=== PATIENT | female | born 1960 | race Caucasian/White ===

== ENCOUNTER 2017-06-05 07:00 | Inpatient (IN) | payer OTHER ==
[~2017-06-05] VITALS: Ht 162.6 cm; Wt 73.0 kg
[2017-06-05] VITALS (7 sets, daily range): BP systolic 101–127; BP diastolic 72–86
--- NOTE | 2017-06-05 07:34 | NUR ---
PATIENT PRESENTS TO ED WITH COMPLAINS OF n/v X5 DAYS . PT STATES SHE HAS A 10/10 PAIN IN ABD . SKIN IS PINK/WARM/DRY;AAX4, LUNGS CLEAR BL; HR EVEN AND REGULAR; PT DENIES ANY FEVER, CP, SOB, OR COUGH AT THIS TIME;VSS; PATIENT POSITIONED FOR COMFORT; HOB ELEVATED; BEDRAILS UP X2; BED DOWN. ER MD MADE AWARE OF PT STATUS.
[2017-06-05] MEDS ORDERED: OMEP20TC10 PO (07:35)
[2017-06-05] MEDS ORDERED: FERR-252 PO (07:35)
[2017-06-05] MEDS ORDERED: ONDANSETRON 4 MG/2 ML VIAL IVP ONE (07:35)
[2017-06-05] MEDS ORDERED: FAMOTIDINE 20 MG/2 ML VIAL IVP ONE (07:35)
[2017-06-05] MEDS ORDERED: NACL 0.9% 1,000 ML IV ONE (07:35)
--- NOTE | 2017-06-05 07:57 | NUR ---
PT WAS TAKEN OFF THE UNIT VIA GURNEY FOR CT SCAN BY DARLIN LIANG.
--- NOTE | 2017-06-05 08:10 | NUR ---
CHEST XRAY AT BEDSIDE BY ZIA.
[2017-06-05 08:38] LABS: PLATELET COUNT (AUTO) 214 K/uL (140-450); RED CELL DISTRIBUTION WIDTH 19.3 % (11.6-13.7); WHITE BLOOD COUNT (AUTO) 9.8 K/uL (4.8-10.8)
[2017-06-05 08:41] LABS: MEAN CORPUSCULAR HEMOGLOBIN 31 pg (27-31); MEAN CORPUSCULAR HGB CONC 32 g/dL (33-37); MEAN CORPUSCULAR VOLUME 97.2 fL (80-94); RED BLOOD CELL COUNT(AUTO) 1.85 MIL/uL (4.20-5.40)
[2017-06-05 09:13] LABS: ANION GAP 15.9 (8-16); CARBON DIOXIDE 23.8 mmol/L (21-32); POTASSIUM 4.7 mmol/L (3.5-5.1); TOTAL BILIRUBIN 0.3 mg/dL (0.0-1.0)
[2017-06-05 09:25] LABS: HEMOGLOBIN 5.7 g/dL (12.0-16.0)
[2017-06-05] MEDS ORDERED: PIPERACILLIN/TAZOBACTAM 3.375 GM in DEXTROSE 5% 50 ML IV ONE (09:30)
[2017-06-05] MEDS ORDERED: VANCOMYCIN 1,000 MG in DEXTROSE 5% 250 ML IV ONE (09:30)
[2017-06-05] MEDS ORDERED: VANCOMYCIN 1,000 MG VIAL ONE (09:35)
[2017-06-05] MEDS ORDERED: PIPERACILLIN/TAZOBACTAM 3.375 GM VIAL IV ONE (09:35)
[2017-06-05] MEDS ORDERED: MORPHINE SULFATE 2 MG/ML SYR IVP PRN (10:10)
[2017-06-05] MEDS ORDERED: VANCOMYCIN PER PHARMACY MC PRN (10:10)
[2017-06-05] MEDS ORDERED: LORazepam 2 MG/ML VIAL IVP PRN (10:10)
[2017-06-05] MEDS ORDERED: ONDANSETRON 4 MG/2 ML VIAL IVP PRN (10:10)
[2017-06-05] MEDS ORDERED: PANTOPRAZOLE 40 MG INJ VIAL IVP SCH (10:30)
[2017-06-05 10:46] LABS: MAGNESIUM 1.9 mg/dL (1.8-2.4); PHOSPHORUS 2.8 mg/dL (2.5-4.9)
--- NOTE | 2017-06-05 11:00 | NUR ---
ADMITTED PT FROM ER . PT AWAKE, ALERT AND ORIENTED, JAUNDICE,BEDSIDE MONITOR SHOWS ST. ON O2 NC 2L/MIN, NO S/S OF RESPIRATORY DISTRESS NOTED. LUNG SOUND CLEAR. SKIN INTACT, IV TO RIGHT HAND # 22 RUNNING VANCOMYCIN, SITE INTACT AND PATENT. PT ABLE TO MOVE ALL HER EXTREMITIES, FAMILY AT BEDSIDE. CALL LIGHT IN REACH, WILL CONTINUE TO MONITOR.
--- NOTE | 2017-06-05 11:02 | NUR ---
STARTED THE FIRST RED BLOOD CELLS TRANSFUSION, PT VITALS CHECKED, STABLE, NO FEVER, RISKS AND BENEFITS EXPLAINED TO PT. PT VERBALIZED UNDERSTANDING AND PT SAID SHE WILL NOTIFY US IF SHE HAS ANY DISCOMFORT. PT'S FAMILY AT BEDSIDE.
--- NOTE | 2017-06-05 11:03 | NUR ---
Patient will be admitted to care of DR. STANLEY. Admited to ICU. Will go to room 1. Belongings list completed. Report to HOSSEIN ORDAZ ; PT. WAS UNABLE TO GIVE URINE AT THIS TIME.
--- NOTE | 2017-06-05 11:14 | NUR ---
RECEIVED LAB RESULT LACTIC ACID 4.3. PAGED DR. STANLEY, GOT CALL BACK. NOTIFIED LACTIC ACID RESULT SAID WILL BE IN ICU TO SEE PT. AT AFTERNOON TODAY.
[2017-06-05] MEDS: DEXT 5% / NACL 0.45% 1,000 ML IV SCH (11:15)
--- NOTE | 2017-06-05 11:50 | NUR ---
DR. GUERRERO IN TO SEE PT, PER DR. GUERRERO, INSERT NGT AND CONNECT TO HIGH INTERMITTENT SUCTION.
[2017-06-05 11:58] LABS: PROTHROMBIN TIME 13.7 secs (10.8-13.4)
--- NOTE | 2017-06-05 12:00 | NUR ---
NG TUBE TO LEFT NARES INSERTION DONE, 1600 MLS COFFEE GROUND LIQUID OUTPUT NOTED. DR. GUERRERO AWARE
--- NOTE | 2017-06-05 13:35 | NUR ---
STARTED THE SECOND BAG OF RED BLOOD CELLS TRANSFUSION.
--- NOTE | 2017-06-05 15:00 | NUR ---
IN TO SEE PT, WILL FOLLOW UP.
--- NOTE | 2017-06-05 15:30 | NUR ---
PT STATED SHE FEELS MUCH BETTER COMPARED TO THIS MORNING. NO S/S OF RESPIRATORY DISTRESS NOTED.
[2017-06-05] MEDS ORDERED: PIPERACILLIN/TAZOBACTAM 3.375 GM in DEXTROSE 5% 50 ML IV SCH (16:00)
--- NOTE | 2017-06-05 16:10 | NUR ---
STARTED THE THIRD BAG OF RED BLOOD CELLS TRANSFUSION.
--- NOTE | 2017-06-05 18:00 | NUR ---
PT RESTING COMFORTABLY IN BED. DAUGHTERS AT BEDSIDE. PT STATED SHE FEELS FINE.
[2017-06-05 18:58] LABS: LYMPHOCYTES % (MANUAL) 8 % (20-46); MONOCYTES % (MANUAL) 15 % (5-12)
--- NOTE | 2017-06-05 19:15 | NUR ---
REPORT GIVEN TO PM NURSE BY CHARGE NURSE.
--- NOTE | 2017-06-05 20:00 | NUR ---
PATIENT AAOX4, SR ON THE MONITOR, RECEIVED WITH 4TH UNIT OF PRBC TRANSFUSING, SON AT BEDSIDE AND INTERPRETING FOR THE PATIENT (SYRIAN SPEAKING ONLY). MEDIPORT ON RIGHT SUBCLAVIAN INTACT, PATIENT HAS PERIPHERAL LINE ON RIGHT HAND G#20, PATENT AND INTACT. NGT TO HIGH INTERMITTENT SUCTION, NOTED WITH COFFEE GROUND DRAINAGE, NO NAUSEA , VOMITING AND ABDOMINAL PAIN. SKIN INTACT. CALL LIGHT PLACED WITHIN REACH. Addendum: 06/05/17 at 2237 by Camryn Gandhi RN IV PERIPHERAL ON RIGHT HAND G#22 AND NOT G#20
[2017-06-05] MEDS: PIPER/TAZO 3.375GM/D5W PREMIX 50 ML IV SCH (20:31)
[2017-06-05] MEDS: VANCOMYCIN 500 MG in DEXTROSE 5% 100 ML IV SCH (22:00)
--- NOTE | 2017-06-05 22:00 | NUR ---
4TH UNIT PRBC COMPLETED AT 2119 WITH NO ADVERSE REACTIONS NOTED. DENIES PAIN. DR. GUZMÁN HERE AT THIS TIME TO SEE THE PATIENT, TO CONTINUE CURRENT ANTIBIOTICS TREATMENT.
[2017-06-06] VITALS (12 sets, daily range): BP systolic 86–117; BP diastolic 45–67
--- NOTE | 2017-06-06 00:27 | NUR ---
PATIENT SLEEPING COMFORTABLY, SR ON THE MONITOR, RESPIRATION NORMAL, IVF D5 1/2 NS AT 75 ML/HR INFUSING.
[2017-06-06] MEDS: DEXT 5% / NACL 0.45% 1,000 ML IV SCH ×2 (02:04→13:25)
--- NOTE | 2017-06-06 02:54 | NUR ---
PATIENT SLEEPING COMFORTABLY.
--- NOTE | 2017-06-06 04:17 | NUR ---
PATIENT ABLE TO TURNED AND REPOSITIONED SELF IN BED, SLEEPING COMFORTABLY.
[2017-06-06] MEDS: PIPER/TAZO 3.375GM/D5W PREMIX 50 ML IV SCH ×3 (04:24→21:24)
--- NOTE | 2017-06-06 06:19 | NUR ---
AM CARE PROVIDED, IVF D5 1/2 NS INFUSING AT 75 MLS/HR, IV SITE ON RIGHT HAND REMAINS PATENT AND INTACT, NO GASTRIC OUTPUT NOTED, NGT TO LEFT NARE CONNECTED TO INTERMITTENT SUCTION. MEDIPORT ON RIGHT SUBCLAVIAN INTACT AND PATENT. PATIENT SLEPT WELL DURING THE NIGHT, NO NAUSEA,VOMITING OR ABDOMINAL PAIN OCCURRED. CALL LIGHT WITHIN REACH.
[2017-06-06 06:43] LABS: ALBUMIN 1.8 g/dL (3.4-5.0); ANION GAP 11.4 (8-16); CARBON DIOXIDE 28.1 mmol/L (21-32); POTASSIUM 4.5 mmol/L (3.5-5.1); TOTAL BILIRUBIN 0.7 mg/dL (0.0-1.0)
[2017-06-06 07:13] LABS: HEMATOCRIT 30.9 % (36-48); HEMOGLOBIN 10.1 g/dL (12.0-16.0); MEAN CORPUSCULAR HEMOGLOBIN 29 pg (27-31); MEAN CORPUSCULAR HGB CONC 33 g/dL (33-37); MEAN CORPUSCULAR VOLUME 89.8 fL (80-94); PLATELET COUNT (AUTO) 136 K/uL (140-450); RED BLOOD CELL COUNT(AUTO) 3.44 MIL/uL (4.20-5.40); WHITE BLOOD COUNT (AUTO) 8.6 K/uL (4.8-10.8)
--- NOTE | 2017-06-06 08:00 | NUR ---
RECEIVED REPORT FROM HOSSEIN ORDAZ. PT AWAKE IN BED WITH AT BEDSIDE. PT IS A&0X4. PT IS ABLE TO MOVE ALL EXTREMITIES, RESPONDS TO ALL COMMANDS AND IS ABLE TO AMBULATE. PT HAD NG TUBE ON INTERMITTENT SUCTION WITH COFFEE GROUND COLOR FLUID REMOVED FORM STOMACH. PT DENIES ALL PAIN. PT HAS BEDSIDE COMMODE IN ROOM AND USES FOR BATHROOM NEEDS. PT HAS +2 BILATERAL PULSES ON ALL EXTREMITIES WITH SKIN WARM AND DRY TO TOUCH. PT IS AFEBRILE. LUNG SOUNDS ARE CLEAR BILATERALLY. BOWEL SOUNDS ACTIVE IN ALL 4 QUADRANTS ALTHOUGH NPO. PTS SKIN IS INTACT. PT HAS SCDS IN ROOM BUT HAS ASKED TO NOT WEAR THEM FOR A LITTLE WHILE, WILL ASK TO PUT THEM BACK ON SOON. PTS BED LEFT IN LOWEST POSITION, BED LOCK AND ALARM ON. CALL LIGHT WITHIN REACH.
--- NOTE | 2017-06-06 08:10 | NUR ---
DR. CASTILLO CAME TO SEE PATIENT. AT BEDSIDE. WILL CLOSELY MONITOR.
[2017-06-06] MEDS: PANTOPRAZOLE 40 MG INJ VIAL IVP SCH (09:43)
[2017-06-06] MEDS: VANCOMYCIN 500 MG in DEXTROSE 5% 100 ML IV SCH ×2 (10:07→22:08)
--- NOTE | 2017-06-06 11:00 | NUR ---
PT'S DAUGHTER AT BEDSIDE.
--- NOTE | 2017-06-06 11:27 | NUR ---
PT RESTING IN BED WITH AND DAUGHTER AT BEDSIDE. PT STATES NO PAIN AND SHE IS OKAY. WILL CLOSELY MONITOR.
--- NOTE | 2017-06-06 11:28 | NUR ---
FAXED INITIAL REVIEW TO [facility] [phone] PHONE KYRA [phone]
--- NOTE | 2017-06-06 12:18 | NUR ---
PATIENT HAS BEEN SCREENED AND CATEGORIZED HIGH NUTRITION RISK. PATIENT WILL BE SEEN WITHIN 1-2 DAYS OF ADMISSION. 06/05/17-06/06/[address]
--- NOTE | 2017-06-06 13:18 | NUR ---
06/06/2017 RD INITIAL ASSESSMENT COMPLETED PLEASE REFER TO NUTRITION ASSESSMENT UNDER CARE ACTIVITY FOR ESTIMATED NUTRITIONAL NEEDS. CONTINUE NPO MEDICALLY NECESSARY. WHEN MEDICALLY FEASIBLE, ADVANCE DIET TO REGULAR DIET. RD TO FOLLOW-UP IN 2-3 DAYS PATIENT IS HIGH RISK. LILLIANA HELMS, RD
--- NOTE | 2017-06-06 13:50 | NUR ---
PT RESTING IN BED. STILL NPO. PT'S SON AND DAUGHTER IN LAW AT BED SIDE. PT DENIES ALL PAIN.
--- NOTE | 2017-06-06 15:00 | NUR ---
PT SLEEPING IN BED. BED IN LOWEST POSITION. BED ALARM AND LOCK ON, CALL LIGHT IN PLACE. HOB ELEVATED. WILL CLOSELY MONITOR.
[2017-06-06 15:02] LABS: LYMPHOCYTES % (MANUAL) 12 % (20-46); MONOCYTES % (MANUAL) 14 % (5-12)
--- NOTE | 2017-06-06 15:45 | NUR ---
CAME TO SEE PATIENT, AT BEDSIDE WITH SON. SON REQUESTED MEDICAL RECORDS AND ADMITTING CAME TO SPEAK WITH PATIENT'S FAMILY. SON WAS WORRIED ABOUT LANGUAGE BARRIER, EDUCATED ON TRANSLATION SYSTEM AND ENSURING THAT PT ALWAYS FELT COMFORTABLE WITH SECURITY INCIDENT RESPONSE ENGINEER.
--- NOTE | 2017-06-06 17:29 | NUR ---
PT IS WATCHING TV IN BED. DENIES ALL PAIN. WILL CLOSELY MONITOR.
--- NOTE | 2017-06-06 19:17 | NUR ---
GAVE BEDSIDE REPORT TO NIGHT RN, JOSE MIGUEL, FOR CONTINUATION OF CARE.
--- NOTE | 2017-06-06 19:30 | NUR ---
RECEIVED BEDSIDE REPORT FROM MORNING NURSE. PT IS AWAKE AND AAO X4, VERBALLY RESPONSIVE, ABLE TO MAKE NEEDS KNOWN. NGT IN PLACE WITH CLAMPED AND CLEAR SECRETION NOTED. BILATERAL LUNG SOUND CLEAR. ACTIVE BOWEL SOUND FROM ALL 4 QUADS. MEDIPORT TO RIGHT SUBCLAVIAN, ASYMPTOMATIC, INTACT AND PATENT. SKIN INTACT. NO ACUTE DISTRESS NOTED. DENIES ANY PAIN OR DISCOMFORT. BED IN LOW POSITION. CALL LIGHT WITHIN THE REACH. WILL CONTINUE TO MONITOR.
--- NOTE | 2017-06-06 20:40 | NUR ---
TRIED TO INSERT PERIPHERAL IV LINE X3, UNABLE TO INSERT AT THIS TIME. NOTIFIED TO AND DR. STANLEY STATED OK TO USE MEDIPORT TO RIGHT SUBCLAVIAN.
--- NOTE | 2017-06-06 21:20 | NUR ---
ADMINISTERED SCHEDULED ABX ORDERED, TOLERATED WELL. NO ACUTE DISTRESS NOTED. FAMILY MEMBERS AT BEDSIDE. SR ON THE MONITOR. DENIES PAIN. WILL CONTINUE TO MONITOR.
--- NOTE | 2017-06-06 22:10 | NUR ---
ADMINISTERED SCHEDULED ABX ORDERED, TOLERATED WELL. NO ACUTE DISTRESS NOTED. SR ON THE MONITOR. WILL CONTINUE TO MONITOR.
--- NOTE | 2017-06-06 22:50 | NUR ---
AT HERE TO SEE THE PT. WILL FOLLOW THE ORDERS.
[2017-06-07] VITALS: BP 85/50
--- NOTE | 2017-06-07 | NUR ---
PT IS IN ASLEEP AT THIS TIME, AROUSABLE TO VOICE. SR ON THE MONITOR. NO ACUTE DISTRESS NOTED.
[2017-06-07 02:00] VITALS: BP 111/73
--- NOTE | 2017-06-07 02:00 | NUR ---
PT IS IN ASLEEP, AROUSABLE TO VOICE. NO ACUTE DISTRESS NOTED. SR ON THE MONITOR. DENIES ANY PAIN OR DISCOMFORT.WILL CONTINUE TO MONITOR.
[2017-06-07] MEDS: DEXT 5% / NACL 0.45% 1,000 ML IV SCH ×2 (02:24→15:37)
--- NOTE | 2017-06-07 03:40 | NUR ---
PT IS IN ASLEEP, AROUSABLE TO VOICE. NO ACUTE DISTRESS NOTED. PT USED BEDSIDE COMMODE WITH ASSISTANCE FOR URINATION. SR ON THE MONITOR. WILL CONTINUE TO MONITOR.
[2017-06-07] MEDS: PIPER/TAZO 3.375GM/D5W PREMIX 50 ML IV SCH ×3 (05:10→20:59)
--- NOTE | 2017-06-07 05:30 | NUR ---
PT IS IN ASLEEP, AROUSABLE TO VOICE. NO ACUTE DISTRESS NOTED. SR ON THE MONITOR. VSS. WILL CONTINUE TO MONITOR.
[2017-06-07 07:04] LABS: HEMATOCRIT 31.1 % (36-48); MEAN CORPUSCULAR HEMOGLOBIN 29 pg (27-31); MEAN CORPUSCULAR HGB CONC 32 g/dL (33-37); MEAN CORPUSCULAR VOLUME 89.8 fL (80-94); PLATELET COUNT (AUTO) 128 K/uL (140-450); RED BLOOD CELL COUNT(AUTO) 3.47 MIL/uL (4.20-5.40); RED CELL DISTRIBUTION WIDTH 17.8 % (11.6-13.7); WHITE BLOOD COUNT (AUTO) 5.4 K/uL (4.8-10.8)
--- NOTE | 2017-06-07 07:20 | NUR ---
PT TRANSFERRED TO TELE ROOM 111B FROM ICU, BEDSIDE REPORT GIVEN TO DARIA OWUSU DURING TRANSFER. NO ACUTE DISTRESS NOTED.
--- NOTE | 2017-06-07 07:21 | NUR ---
RECEIVED BEDSIDE REPORT FROM ICU NURSE AT BEDSIDE FOR CONTINUITY OF CARE. PT IS AWAKE AND AAO X4, VERBALLY RESPONSIVE, DIVEHI SPEAKING. ABLE TO MAKE NEEDS KNOWN. NGT IN PLACE WITH CLAMPED AND CLEAR SECRETION NOTED. BILATERAL LUNG SOUND CLEAR. ACTIVE BOWEL SOUND FROM ALL 4 QUADRANTS. MEDIPORT TO RIGHT SUBCLAVIAN, ASYMPTOMATIC, INTACT AND PATENT. SKIN INTACT. NO ACUTE DISTRESS NOTED. PATIENT DENIES PAIN. NO SIGNS OF DISCOMFORT NOTED. SAFETY PRECAUTION IN PLACE, BED IN LOW POSITION. CALL LIGHT WITHIN THE REACH. WILL CONTINUE TO MONITOR PATIENT.
[2017-06-07 07:27] LABS: ALBUMIN 1.8 g/dL (3.4-5.0); ANION GAP 10.1 (8-16); CARBON DIOXIDE 27.5 mmol/L (21-32); CREATININE 0.9 mg/dL (0.6-1.3); POTASSIUM 3.6 mmol/L (3.5-5.1); TOTAL BILIRUBIN 0.6 mg/dL (0.0-1.0)
[2017-06-07 07:49] LABS: EOSINOPHILS % (MANUAL) 3 % (0-4); LYMPHOCYTES % (MANUAL) 12 % (20-46); MONOCYTES % (MANUAL) 18 % (5-12)
[2017-06-07 08:00] VITALS: BP 95/64
[2017-06-07] MEDS: PANTOPRAZOLE 40 MG INJ VIAL IVP SCH (09:46)
--- NOTE | 2017-06-07 09:46 | NUR ---
ORDERED MEDICATION GIVEN. PATIENT TOLERATING IT WELL. PATIENT DENIES PAIN. TOLERATING CLEAR LIQUID DIET WELL. ORDER FOR CT BIOPSY/ASPIRATION. CONSENT OBTAINED. PATIENT SHOWS NO SIGNS OF DISTRESS. SAFETY PRECAUTION IN PLACE, CALL LIGHT WITHIN REACH. WILL CONTINUE TO MONITOR PATIENT.
--- NOTE | 2017-06-07 10:15 | NUR ---
FOLLOW UP WITH CT BIOPSY/ASPIRATION PROCEDURE. SPOKE TO ZIA FROM RADIOLOGY. SHE SAID RADIOLOGY WILL NEED TO SPEAK TO DR. CASTILLO TO CLARIFY WHAT THE CT BIOPSY IS FOR.
[2017-06-07] MEDS: VANCOMYCIN 500 MG in DEXTROSE 5% 100 ML IV SCH ×2 (10:19→22:20)
--- NOTE | 2017-06-07 10:19 | NUR ---
ORDERED MEDICATIONS GIVEN. PATIENT TOLERATING IT WELL. PATIENT DENIES PAIN. NO SIGNS OF DISTRESS. SAFETY PRECAUTION IN PLACE, CALL LIGHT WITHIN REACH. WILL CONTINUE TO MONITOR PATIENT.
--- NOTE | 2017-06-07 11:37 | NUR ---
RADIOLOGIST SPOKE TO DR. CASTILLO. NEW ORDER OF ABDOMINAL US IN. WILL FOLLOW UP WITH RADIOLOGY. PATIENT AND FAMILY MEMBERS INFORMED. PATIENT RESTING IN BED, PATIENT DENIES PAIN. NO SIGNS OF DISTRESS. SAFETY PRECAUTION IN PLACE, CALL LIGHT WITHIN REACH. WILL CONTINUE TO MONITOR PATIENT.
[2017-06-07 12:00] VITALS: BP 104/77
--- NOTE | 2017-06-07 12:30 | NUR ---
ORDERED MEDICATIONS GIVEN. PATIENT TOLERATING IT WELL. PATIENT DENIES PAIN. NO SIGNS OF DISTRESS. SAFETY PRECAUTION IN PLACE, CALL LIGHT WITHIN REACH. WILL CONTINUE TO MONITOR PATIENT. WAITING FOR ABDOMINAL US ORDERED BY DR. CASTILLO. CALLED RADIOLOGY, SPOKE TO ZIA. SHE SAID SHE WILL FOLLOW UP AND RETURN MY CALL. AWAITING HER CALL BACK.
--- NOTE | 2017-06-07 13:31 | NUR ---
SPECIAL OFFICER IN TO DO ABDOMINAL LIMITED US OF RIGHT UPPER QUADRANT. RIKA AND A FRIEND IS BY BEDSIDE. PATIENT TOLERATING IT WELL. WILL FOLLOW UP WITH RESULTS.
[2017-06-07 16:00] VITALS: BP 110/79
--- NOTE | 2017-06-07 16:15 | NUR ---
CALLED RADIOLOGY TO FOLLOW UP WITH RESULTS OF ABDOMINAL US AND TO SEE IF CT BIOPSY WILL BE DONE TODAY. SPOKE TO MARY. HE SPOKE TO RADIOLOGIST. PATIENT CURRENTLY IN STABLE CONDITION. SO CT BIOPSY WILL BE DONE TOMORROW 06/08. DR. GUERRERO IN TO SEE THE PATIENT. AT BEDSIDE. NG TUBE REMOVED, PATIENT DRINKING FLUIDS AND TOLERATING THEM WELL. NO NAUSEA OR VOMITING. VS WNL. PATIENT DENIES PAIN. NO SIGNS OF DISTRESS. SAFETY PRECAUTION IN PLACE, CALL LIGHT WITHIN REACH. WILL CONTINUE TO MONITOR PATIENT.
--- NOTE | 2017-06-07 18:16 | NUR ---
PATIENT SITTING BY SIDE OF BED EATING DINNER. AND DAUGHTER AT BEDSIDE. NO SIGNS OF DISTRESS NOTED. PATIENT DENIES PAIN. SAFETY PRECAUTION IN PLACE, BED ON LOWEST SETTING, CALL LIGHT WITHIN REACH. WILL CONTINUE TO MONITOR PATIENT.
--- NOTE | 2017-06-07 19:23 | NUR ---
PATIENT REPORT GIVEN TO ADVANCED MANAGER NURSE AT BEDSIDE FOR CONTINUITY OF CARE. PATIENT IN STABLE CONDITION.
--- NOTE | 2017-06-07 19:23 | NUR ---
RECEIVED PATIENT IN BED ACCOMPANIED BY . BED IN LOW POSITION. CALL LIGHTS WITHIN REACH. NO S/ S OF ACUTE DISTRESS AT THIS TIME.
[2017-06-07 20:00] VITALS: BP 116/74
--- NOTE | 2017-06-07 21:30 | NUR ---
SEEN PATIENT LYING BED IN COMFORTABLE POSITION. BED IN LOW POSITION. CALL LIGHTS WITHIN REACH. NO S/S OF ACUTE DISTRESS AT THIS TIME. WILL CONTINUE TO MONITOR.
[2017-06-08] VITALS (10 sets, daily range): BP systolic 95–141; BP diastolic 57–85
--- NOTE | 2017-06-08 01:05 | NUR ---
SEEN PATIENT ASLEEP BUT EASILY AROUSABLE. BED IN LOW POSITION. CALL LIGHT WITHIN REACH. WILL CONTINUE TO MONITOR.
--- NOTE | 2017-06-08 03:00 | NUR ---
SEEN PATIENT ASLEEP IN BED. CALL LIGHTS WITHIN REACH. BED IN LOW POSITION.. WILL CONTINUE TO MONITOR.
[2017-06-08] MEDS: PIPER/TAZO 3.375GM/D5W PREMIX 50 ML IV SCH ×3 (04:34→20:47)
[2017-06-08] MEDS: DEXT 5% / NACL 0.45% 1,000 ML IV SCH ×2 (04:46→16:33)
--- NOTE | 2017-06-08 06:02 | NUR ---
SEEN PATIENT SITTING AWAKE IN BED. BED IN LOW POSITION. CALL LIGHT WITHIN REACH. WILL CONTINUE TO MONITOR.
--- NOTE | 2017-06-08 07:06 | NUR ---
PATIENT REPORT GIVEN TO AM SHIFT NURSE AT BEDSIDE FOR CONTINUITY OF CARE. PATIENT IN STABLE CONDITION.
--- NOTE | 2017-06-08 07:07 | NUR ---
RECEIVED REPORT FROM LAYBOY OPERATOR NURSE AT BEDSIDE FOR CONTINUITY OF CARE. PT IS ASLEEP BUT AROUSABLE, AAO X4, AT BEDSIDE. VERBALLY RESPONSIVE, CROATIAN SPEAKING. ABLE TO MAKE NEEDS KNOWN. MEDIPORT TO RIGHT SUBCLAVIAN, ASYMPTOMATIC, INTACT AND PATENT, INFUSING IVF. SKIN INTACT. NO ACUTE DISTRESS NOTED. PATIENT DENIES PAIN. NO SIGNS OF DISCOMFORT NOTED. SAFETY PRECAUTION IN PLACE, BED IN LOW POSITION. CALL LIGHT WITHIN THE REACH. WILL CONTINUE TO MONITOR PATIENT.
--- NOTE | 2017-06-08 07:30 | NUR ---
CALLED RADIOLOGY TO INQUIRE ABOUT CT BIOPSY AND IF IT WILL BE DONE TODAY. SPOKE TO FERNANDO. WILL AWAIT HER CALL BACK.
[2017-06-08 07:44] LABS: HEMATOCRIT 29.6 % (36-48); HEMOGLOBIN 9.6 g/dL (12.0-16.0); MEAN CORPUSCULAR HEMOGLOBIN 30 pg (27-31); MEAN CORPUSCULAR HGB CONC 33 g/dL (33-37); PLATELET COUNT (AUTO) 142 K/uL (140-450); RED BLOOD CELL COUNT(AUTO) 3.26 MIL/uL (4.20-5.40); RED CELL DISTRIBUTION WIDTH 18.1 % (11.6-13.7)
--- NOTE | 2017-06-08 07:45 | NUR ---
FERNANDO CALLED BACK. SHE SAID THAT RADIOLOGIST WAS PAGED, HE HAS NOT CALLED BACK. SHE WILL UPDATE ME WHEN HE DOES.
--- NOTE | 2017-06-08 08:31 | NUR ---
DR. CASTILLO IN TO SEE THE PATIENT. WILL AWAIT NEW ORDERS.
--- NOTE | 2017-06-08 09:00 | NUR ---
PATIENT RESTING IN BED, AT BEDSIDE. PATIENT AMBULATED TO RESTROOM ON STEADY GAIT WITH 'S STANDBY ASSIST. PATIENT HAD BOWEL MOVEMENT, BLACK, FORMED, TARRY STOOL. STOOL SAMPLE TAKEN AND SENT TO LAB. PATIENT DENIES PAIN. NO SIGNS OF DISTRESS NOTED. SAFETY PRECAUTION IN PLACE, BED IN LOWEST POSITION, CALL LIGHT WITH IN REACH. WILL CONTINUE TO MONITOR PATIENT.
--- NOTE | 2017-06-08 09:17 | NUR ---
06/08/17 RD FOLLOW UP COMPLETED PLEASE REFER TO NUTRITION PROGRESS NOTE UNDER CARE ACTIVITY FOR ESTIMATED NUTRITION NEEDS. RD RECOMMENDATIONS: 1.CONTINUE ON CLEAR LIQUID DIET TOLERATED. 2.CONSIDER ADVANCING DIET TO FULL LIQUID AND THEN TO REGULAR TOLERATED. 3.RD TO FOLLOW-UP IN 3-5 DAYS PATIENT IS MODERATE RISK. FLAKITO RAMOS, , RDN
[2017-06-08 09:19] LABS: EOSINOPHILS % (MANUAL) 2 % (0-4); LYMPHOCYTES % (MANUAL) 18 % (20-46); MONOCYTES % (MANUAL) 19 % (5-12); POTASSIUM 3.6 mmol/L (3.5-5.1)
[2017-06-08 09:20] LABS: ANION GAP 10.3 (8-16); CARBON DIOXIDE 27.3 mmol/L (21-32); CREATININE 0.9 mg/dL (0.6-1.3); TOTAL BILIRUBIN 0.6 mg/dL (0.0-1.0)
[2017-06-08 09:21] LABS: ALBUMIN 1.8 g/dL (3.4-5.0)
[2017-06-08] MEDS: PANTOPRAZOLE 40 MG INJ VIAL IVP SCH (09:26)
--- NOTE | 2017-06-08 09:26 | NUR ---
ORDERED MEDICATION GIVEN. PATIENT TOLERATED IT WELL. PATIENT NOW RESTING IN BED, NO SIGNS OF DISTRESS NOTED. SAFETY PRECAUTION IN PLACE, BED ALARM ON, BED IN LOWEST POSITION, CALL LIGHT WITH IN REACH. WILL CONTINUE TO MONITOR PATIENT.
[2017-06-08] MEDS: VANCOMYCIN 500 MG in DEXTROSE 5% 100 ML IV SCH (09:56)
--- NOTE | 2017-06-08 10:10 | NUR ---
CONSENT FOR EGD SIGNED. INFORMATION ABOUT PROCEDURE GIVEN TO PATIENT AND HER IN [place] FOR CLARIFICATION. THEY VERBALIZED UNDERSTANDING. VANCO TROUGH DONE ON 06/05/2017. NO NEW TROUGH TODAY. VANCOMYCIN GIVEN PER PHARMACIST, NANCY'S, AGREEMENT AND KNOWLEDGE. PATIENT CURRENTLY SITTING BY SIDE OF BED, NO SIGNS OF DISTRESS OR SOB NOTED. PATIENT DENIES PAIN. SAFETY PRECAUTION IN PLACE, CALL LIGHT WITHIN REACH. WILL CONTINUE TO MONITOR PATIENT.
[2017-06-08] MEDS: MIDAZOLAM 2 MG/2 ML VIAL ONE ×2 (10:44→11:24)
[2017-06-08] MEDS: fentaNYL 0.05 MG/ML VIAL ONE ×2 (10:44→11:24)
--- NOTE | 2017-06-08 10:55 | NUR ---
PATIENT TAKEN TO EGD PROCEDURE BY 2 OR NURSES. PATIENT IN STABLE CONDITION.
[2017-06-08] MEDS ORDERED: MIDAZOLAM 2 MG/2 ML VIAL IV ONE (11:30)
[2017-06-08] MEDS ORDERED: fentaNYL 0.05 MG/ML VIAL IVP ONE (11:40)
--- NOTE | 2017-06-08 11:50 | NUR ---
PATIENT BROUGHT BACK TO FLOOR VIA BED, BY 2 RNS. VITAL SIGNS STABLE, AND FRIEND AT BEDSIDE. SAFETY PRECAUTION IN PLACE, CALL LIGHT WITHIN REACH. WILL CONTINUE TO MONITOR PATIENT.
--- NOTE | 2017-06-08 12:24 | NUR ---
CONTRERAS FROM RADIOLOGY CALLED BACK. INFORMED RN THAT RADIOLOGIST ALREADY SPOKE TO DR. GUZMÁN. WILL CONTINUE PATIENT ON ANTIBIOTICS. NO CT BIOPSY AT THE MOMENT. INFORMED DR. CASTILLO, NEW ORDERS IN FOR REGULAR DIET FOR DINNER. PATIENT INFORMED. FAMILY AT BEDSIDE. PATIENT RESTING IN BED, VITAL SIGNS WNL. NO SIGNS OF DISTRESS NOTED. SAFETY PRECAUTION IN PLACE, BED IN LOWEST POSITION, CALL LIGHT WITHIN REACH. WILL CONTINUE TO MONITOR.
[2017-06-08] MEDS: SUCRALFATE 1 GM TAB PO SCH ×3 (12:52→20:47)
--- NOTE | 2017-06-08 16:32 | NUR ---
ORDERED MEDICATIONS GIVEN. PATIENT TOLERATED IT WELL. PATIENT NOW RESTING IN BED, NO SIGNS OF DISTRESS NOTED, PATIENT DENIES PAIN, AT BEDSIDE. SAFETY PRECAUTION IN PLACE, CALL LIGHT WITHIN REACH, WILL CONTINUE TO MONITOR PATIENT.
--- NOTE | 2017-06-08 17:45 | NUR ---
TUNA SANDWICH CALLED FOR PATIENT. SHE DOES NOT EAT TURKEY, CHICKEN, OR ONIONS. DIETARY NOW AWARE. PATIENT RESTING IN BED, NO SIGNS OF DISTRESS NOTED, PATIENT DENIES PAIN, AT BEDSIDE. SAFETY PRECAUTION IN PLACE, CALL LIGHT WITHIN REACH, WILL CONTINUE TO MONITOR PATIENT.
--- NOTE | 2017-06-08 19:14 | NUR ---
REPORT GIVEN TO SCHOOL SPEECH LANGUAGE PATHOLOGIST NURSE AT BEDSIDE FOR CONTINUITY OF CARE. PATIENT IN STABLE CONDITION.
--- NOTE | 2017-06-08 19:20 | NUR ---
RECEIVED PATIENT LYING IN BED ACCOMPANIED BY . BED IN LOW POSITION. CALL LIGHTS WITHIN REACH. WILL CONTINUE TO MONITOR.
[2017-06-08] MEDS: PANTOPRAZOLE 40 MG TABEC PO SCH (20:47)
--- NOTE | 2017-06-08 21:10 | NUR ---
SEEN PATIENT ASLEEP IN BED EASILY AROUSABLE, BED IN LOW POSITION, CALL LIGHTS WITHIN REACH. WILL CONTINUE TO MONITOR.
[2017-06-09] VITALS: BP 99/65
--- NOTE | 2017-06-09 01:39 | NUR ---
SEEN PATIENT ASLEEP IN BED. CALL LIGHT WITHIN REACH. BED IN LOW POSITION.
[2017-06-09 04:00] VITALS: BP 103/63
[2017-06-09] MEDS: PIPER/TAZO 3.375GM/D5W PREMIX 50 ML IV SCH ×3 (04:21→20:13)
[2017-06-09] MEDS: DEXT 5% / NACL 0.45% 1,000 ML IV SCH ×2 (05:28→08:32)
--- NOTE | 2017-06-09 05:46 | NUR ---
SEN PATIENT ASLEEP IN BED. BED IN LOW POSITION. CALL LIGHTS WITHIN REACH. WILL CONTINUE TO MONITOR.
[2017-06-09 07:02] LABS: HEMATOCRIT 31.7 % (36-48); MEAN CORPUSCULAR HEMOGLOBIN 29 pg (27-31); MEAN CORPUSCULAR HGB CONC 32 g/dL (33-37); MEAN CORPUSCULAR VOLUME 90.8 fL (80-94); PLATELET COUNT (AUTO) 159 K/uL (140-450); RED BLOOD CELL COUNT(AUTO) 3.49 MIL/uL (4.20-5.40); RED CELL DISTRIBUTION WIDTH 17.5 % (11.6-13.7); WHITE BLOOD COUNT (AUTO) 4.1 K/uL (4.8-10.8)
--- NOTE | 2017-06-09 07:02 | NUR ---
PATIENT QUIETLY RESTING. EASILY AWAKENS WHEN SPOKEN TO. BREATH SOUNDS CLEAR. HEART RATE 72. O2 SAT 97% ON ROOM AIR. NO RESPIRATORY DISTRESS AT THIS TIME. WILL CONTINUE TO MONITOR.
--- NOTE | 2017-06-09 07:10 | NUR ---
REPORT GIVEN TO AM SHIFT NURSE AT BEDSIDE FOR CONTINUITY OF CARE. PATIENT IN STABLE CONDITION.
--- NOTE | 2017-06-09 07:11 | NUR ---
RECEIVED REPORT FROM NIGHT RN AT PT BEDSIDE. PATIENT IS ALERT AND ORIENTED. FOLLOWS COMMANDS. RT. SUBCLAVIAN MEDIPORT, PATENT AND INTACT. DENIES PAIN. NO S/S OF RESPIRATORY DISTRESS NOTED ON ROOM AIR. CALL LIGHT WITHIN REACH. BED IN LOWEST POSITION. NO S/S OF ACUTE DISTRESS NOTED.
[2017-06-09 07:47] LABS: ALBUMIN 1.9 g/dL (3.4-5.0); ANION GAP 11.1 (8-16); CARBON DIOXIDE 27.6 mmol/L (21-32); POTASSIUM 3.7 mmol/L (3.5-5.1); TOTAL BILIRUBIN 0.5 mg/dL (0.0-1.0)
[2017-06-09 08:00] VITALS: BP 107/76
[2017-06-09] MEDS: PANTOPRAZOLE 40 MG TABEC PO SCH ×2 (08:31→20:12)
[2017-06-09] MEDS: SUCRALFATE 1 GM TAB PO SCH ×4 (08:31→20:12)
[2017-06-09 11:21] LABS: LYMPHOCYTES % (MANUAL) 7 % (20-46)
[2017-06-09 11:22] LABS: EOSINOPHILS % (MANUAL) 6 % (0-4); MONOCYTES % (MANUAL) 24 % (5-12)
[2017-06-09 12:00] VITALS: BP 132/88
--- NOTE | 2017-06-09 12:00 | NUR ---
PT SITTING UP AT BEDSIDE. AT BEDSIDE. MADE AWARE OF CURRENT PLAN OF CARE. NO S/S OF ACUTE DISTRESS NOTED. DENIES DISCOMFORT.
--- NOTE | 2017-06-09 14:02 | NUR ---
PATIENT SEEN BY DR. GUERRERO AT BEDSIDE. NO S/S OF ACUTE DISTRESS NOTED.
--- NOTE | 2017-06-09 15:36 | NUR ---
LATE ENTRY. RECEIVED ORDER WRITTEN ON 06/[address] STANLEY ABOUT TRANSFER TO [facility] FOR PLACEMENT OF DRAINAGE TUBE. I CALLED DR. STANLEY THIS AM AND ASKED HIM SINCE THIS WAS WRITTEN ON FRIDAY, DID HE CONTACT [facility] OR DOES HE STILL WANT TO SEND PATIENT. HE SAID THIS WOULD BE DR. CASTILLO'S CALL. I CALLED THE FLOOR AND ASKED WHEN DR. CASTILLO COMES IN TO CALL ME. I INFORMED SAMMY CATALANMATERIAL SCHEDULER NURSE. DR. CASTILLO HAS NOT COME IN, SO I ASKED SAMMY CATALANMATERIAL SCHEDULER NURSE TO GET IN TOUCH WITH DR. CASTILLO..
[2017-06-09 16:00] VITALS: BP 119/76
--- NOTE | 2017-06-09 16:25 | NUR ---
FAXED CONCURRENT REVIEW TO [facility] [phone] PHONE JUANITO [phone]
--- NOTE | 2017-06-09 18:00 | NUR ---
DR. CASTILLO SPOKE WITH PATIENT AND AT BEDSIDE REGARDING PLAN OF CARE. PATIENT AND FAMILY VERBALIZED UNDERSTANDING. ALL QUESTIONS AND CONCERNS MET WITH MD. NO S/S OF ACUTE DISTRESS NOTED.
--- NOTE | 2017-06-09 19:31 | NUR ---
SBAR REPORT GIVEN TO NIGHT RN AT PT BEDSIDE. NO S/S OF ACUTE DISTRESS NOTED.
--- NOTE | 2017-06-09 19:40 | NUR ---
RECEIVED REPORT FROM DAY SHIFT RN, PATIENT RESTING IN BED, NO S/S OF DISTRESS NOTED, RESPIRATION EVEN AND UNLABORED, ON ROOM AIR. AT THE BEDSIDE. RT SUBCLAVIAN MEDIPORT PATENT AND INTACT, INFUSING D5 1/2NS AT 75ML/HR. PLAN OF CARE DISCUSSED, PATIENT VERBALIZED UNDERSTANDING, CALL LIGHT WITHIN REACH, SAFETY MEASURE ENSURED, WILL CONTINUE TO MONITOR.
[2017-06-09 20:00] VITALS: BP 134/90
--- NOTE | 2017-06-09 20:15 | NUR ---
DUE MEDICATION GIVEN, PATIENT TOLERATED WELL. NO S/S OF DISTRESS NOTED, RESPIRATION EVEN AND UNLABORED, CALL LIGHT WITHIN REACH, SAFETY MEASURE ENSURED, WILL CONTINUE TO MONITOR.
--- NOTE | 2017-06-09 22:40 | NUR ---
PATIENT IS SLEEPING, RESPIRATION EVEN AND UNLABORED, ON ROOM AIR. NO S/S OF DISTRESS NOTED, CALL LIGHT WITHIN REACH ,SAFETY MEASURE ENSURED, WILL CONTINUE TO MONITOR.
[2017-06-10] VITALS: BP 119/74
--- NOTE | 2017-06-10 00:19 | NUR ---
VITAL SIGNS STABLE, NO S/S OF DISTRESS NOTED, RESPIRATION EVEN AND UNLABORED, CALL LIGHT WITHIN REACH, SAFETY MEASURE ENSURED, WILL CONTINUE TO MONITOR.
--- NOTE | 2017-06-10 02:49 | NUR ---
PATIENT IS SLEEPING, RESPIRATION EVEN AND UNLABORED, ON ROOM AIR. NO S/S OF DISTRESS NOTED, CALL LIGHT WITHIN REACH ,SAFETY MEASURE ENSURED, WILL CONTINUE TO MONITOR.
[2017-06-10 04:00] VITALS: BP 114/75
[2017-06-10] MEDS: PIPER/TAZO 3.375GM/D5W PREMIX 50 ML IV SCH ×2 (04:06→20:03)
--- NOTE | 2017-06-10 04:09 | NUR ---
DUE MEDICATION GIVEN, PATIENT TOLERATED WELL, NO S/S OF DISTRESS NOTED, RESPIRATION EVEN AND UNLABORED, WILL CONTINUE TO MONITOR.
--- NOTE | 2017-06-10 04:49 | NUR ---
PATIENT IS SLEEPING, RESPIRATION EVEN AND UNLABORED, ON ROOM AIR. NO S/S OF DISTRESS NOTED, CALL LIGHT WITHIN REACH ,SAFETY MEASURE ENSURED, WILL CONTINUE TO MONITOR.
--- NOTE | 2017-06-10 06:48 | NUR ---
NO CHANGE IN CONDITION, PATIENT IS SLEEPING, RESPIRATION EVEN AND UNLABORED, CALL LIGHT WITHIN REACH, SAFETY MEASURE ENSURED, WILL CONTINUE TO MONITOR.
--- NOTE | 2017-06-10 07:10 | NUR ---
RECEIVED REPORT AT BEDSIDE. PATIENT RESTING IN BED, NO S/S OF DISTRESS NOTED, RESPIRATION EVEN AND UNLABORED, ON ROOM AIR. RT SUBCLAVIAN MEDIPORT PATENT AND INTACT, INFUSING D5 1/2NS AT 75ML/HR. PLAN OF CARE DISCUSSED, PATIENT VERBALIZED UNDERSTANDING, CALL LIGHT WITHIN REACH, SAFETY MEASURE ENSURED, WILL CONTINUE TO MONITOR.
--- NOTE | 2017-06-10 07:27 | NUR ---
ENDORSED PLAN OF CARE TO DAY SHIFT RN, PATIENT RESTING IN BED, IN STABLE CONDITION, NO S/S OF DISTRESS NOTED.
[2017-06-10 08:00] VITALS: BP 121/73
[2017-06-10 08:21] LABS: EOSINOPHILS # (AUTO) 0.1 K/uL (0-0.4); HEMATOCRIT 30.4 % (36-48); HEMOGLOBIN 9.9 g/dL (12.0-16.0); LYMPHOCYTES # (AUTO) 0.7 K/uL (2.5-16.5); MEAN CORPUSCULAR HEMOGLOBIN 30 pg (27-31); MEAN CORPUSCULAR HGB CONC 33 g/dL (33-37); MEAN CORPUSCULAR VOLUME 91.2 fL (80-94); MONOCYTES # (AUTO) 0.9 K/uL (0.8-1.0); NEUTROPHILS # (AUTO) 2.4 K/uL (1.8-7.7); PLATELET COUNT (AUTO) 151 K/uL (140-450); RED BLOOD CELL COUNT(AUTO) 3.33 MIL/uL (4.20-5.40); RED CELL DISTRIBUTION WIDTH 17.7 % (11.6-13.7); WHITE BLOOD COUNT (AUTO) 4.1 K/uL (4.8-10.8)
[2017-06-10 08:31] LABS: BASOPHILS % (AUTO) 0.2 % (0.0-2.0); EOSINOPHILS % (AUTO) 2.8 % (0.0-4.0); LYMPHOCYTES % (AUTO) 17.4 % (20.5-51.1); MONOCYTES % (AUTO) 22.6 % (1.7-9.3)
[2017-06-10] MEDS: SUCRALFATE 1 GM TAB PO SCH ×4 (09:07→20:02)
[2017-06-10] MEDS: PANTOPRAZOLE 40 MG TABEC PO SCH ×2 (09:07→20:03)
[2017-06-10] MEDS: DEXT 5% / NACL 0.45% 1,000 ML IV SCH ×2 (10:06→23:15)
[2017-06-10 12:00] VITALS: BP 132/82
--- NOTE | 2017-06-10 13:05 | NUR ---
FAXED CONCURRENT REVIEW TO [facility] [phone] PHONE [place] [phone]
--- NOTE | 2017-06-10 13:12 | NUR ---
LATE ENTRY. SPOKE WITH DR. CASTILLO ON 06/09/17 ABOUT WHETHER HE STILL WANTED THE PATIENT TRANSFERED TO [facility]. HE SAID THAT HE WOULD CANCEL THE ORDER.
[2017-06-10] MEDS ORDERED: PIPER/TAZO 3.375GM/D5W PREMIX 50 ML IV SCH (13:23)
--- NOTE | 2017-06-10 14:00 | NUR ---
PATIENT RESTING IN BED. NO S/S OF DISTRESS. FAMILY MEMBER PRESENT AT BEDSIDE
[2017-06-10 16:00] VITALS: BP 125/75
--- NOTE | 2017-06-10 18:00 | NUR ---
PATIENT AMBULATING AROUND THE UNIT. NO S/S OF DISTRESS NOTED
--- NOTE | 2017-06-10 19:06 | NUR ---
RECEIVED REPORT FROM DAY SHIFT RN, PATIENT IS SITTING IN THE BED, AWAKE ALERT ORIENTED X4, AT BEDSIDE. NO S/S OF DISTRESS NOTED, RESPIRATION EVEN AND UNLABORED, ON ROOM AIR. MEDIPORT PATENT AND INTACT, INFUSING D51/2NS AT 75ML/HR. PLAN OF CARE DISCUSSED, PATIENT VERBALIZED UNDERSTANDING. CALL LIGHT WITHIN REACH, SAFETY MEASURE ENSURED, WILL CONTINUE TO MONITOR.
--- NOTE | 2017-06-10 19:16 | NUR ---
PATIENT REPORT GIVEN AT BEDSIDE. PATIENT ENDORSED IN STABLE CONDITION
[2017-06-10 20:00] VITALS: BP 142/87
--- NOTE | 2017-06-10 20:06 | NUR ---
DUE MEDICATION GIVEN, PATIENT TOLERATED WELL. NO S/S OF DISTRESS NOTED, RESPIRATION EVEN AND UNLABORED, SAFETY MEASURE ENSURED, WILL CONTINUE TO MONITOR.
--- NOTE | 2017-06-10 22:16 | NUR ---
PATIENT IS SLEEPING, NO S/S OF DISTRESS NOTED, RESPIRATION EVEN AND UNLABORED, CALL LIGHT WITHIN REACH, SAFETY MEASURE ENSURED, WILL CONTINUE TO MONITOR.
[2017-06-11] VITALS: BP 113/70
--- NOTE | 2017-06-11 00:18 | NUR ---
VITAL SIGNS STABLE, NO S/S OF DISTRESS NOTED, RESPIRATION EVEN AND UNLABORED, CALL LIGHT WITHIN REACH, SAFETY MEASURE ENSURED, WILL CONTINUE TO MONITOR.
--- NOTE | 2017-06-11 02:49 | NUR ---
PATIENT IS SLEEPING, NO S/S OF DISTRESS NOTED, RESPIRATION EVEN AND UNLABORED, CALL LIGHT WITHIN REACH, SAFETY MEASURE ENSURED, WILL CONTINUE TO MONITOR.
[2017-06-11 04:00] VITALS: BP 118/70
[2017-06-11] MEDS: PIPER/TAZO 3.375GM/D5W PREMIX 50 ML IV SCH ×2 (04:12→13:43)
--- NOTE | 2017-06-11 04:17 | NUR ---
DUE MEDICATION GIVEN, PATIENT TOLERATED WELL. NO S/S OF DISTRESS NOTED, RESPIRATION EVEN AND UNLABORED, CALL LIGHT WITHIN REACH, SAFETY MEASURE ENSURED, WILL CONTINUE TO MONITOR.
[2017-06-11 07:02] LABS: HEMATOCRIT 30.5 % (36-48); HEMOGLOBIN 9.7 g/dL (12.0-16.0); MEAN CORPUSCULAR HEMOGLOBIN 29 pg (27-31); MEAN CORPUSCULAR HGB CONC 32 g/dL (33-37); MEAN CORPUSCULAR VOLUME 90.7 fL (80-94); PLATELET COUNT (AUTO) 177 K/uL (140-450); RED BLOOD CELL COUNT(AUTO) 3.36 MIL/uL (4.20-5.40); RED CELL DISTRIBUTION WIDTH 16.9 % (11.6-13.7); WHITE BLOOD COUNT (AUTO) 4.3 K/uL (4.8-10.8)
--- NOTE | 2017-06-11 07:35 | NUR ---
ENDORSED PLAN OF CARE TO DAY SHIFT RN, PATIENT RESTING IN BED, IN STABLE CONDITION, NO S/S OF DISTRESS NOTED.
--- NOTE | 2017-06-11 07:35 | NUR ---
RECEIVED REPORT FROM NEWSPAPER MANAGER RN. PATIENT IS AAOX4, HAS NO SIGNS AND SYMPTOMS OF ACUTE DISTRESS NOTED AT THIS TIME. PATIENT HAS MEDIPORT ACCESS ON THE RIGHT UPPER CHEST AREA. INFUSING D5 1/2 NS AT 75 ML/HR. SITE IS CLEAN, DRY, PATENT AND INTACT. PATIENT AMBULATES WELL AROUND THE UNIT. DENIES PAIN AT THIS TIME. DISCUSSED PLAN OF CARE WITH PATIENT AND SHE VERBALIZED UNDERSTANDING. BED IN LOWEST POSITION, SIDE RAILS UP X2, CALL LIGHT PLACED WITHIN REACH. WILL CONTINUE TO MONITOR.
[2017-06-11 07:39] LABS: ALBUMIN 1.8 g/dL (3.4-5.0); ANION GAP 9.8 (8-16); CARBON DIOXIDE 26.8 mmol/L (21-32); CREATININE 0.9 mg/dL (0.6-1.3); POTASSIUM 3.6 mmol/L (3.5-5.1); TOTAL BILIRUBIN 0.3 mg/dL (0.0-1.0)
[2017-06-11 08:00] VITALS: BP 117/77
[2017-06-11 08:00] LABS: EOSINOPHILS % (MANUAL) 4 % (0-4); LYMPHOCYTES % (MANUAL) 15 % (20-46); MONOCYTES % (MANUAL) 20 % (5-12)
[2017-06-11] MEDS: PANTOPRAZOLE 40 MG TABEC PO SCH (09:24)
[2017-06-11] MEDS: SUCRALFATE 1 GM TAB PO SCH ×2 (09:24→13:46)
--- NOTE | 2017-06-11 11:28 | NUR ---
FAXED CONCURRENT REVIEW TO [facility] [phone] PHONE KYRA [phone]
[2017-06-11] MEDS ORDERED: SIMETHICONE 80 MG TAB.CHEW PO SCH (13:45)
[2017-06-11] MEDS ORDERED: METR250T2 PO (14:22)
[2017-06-11] MEDS ORDERED: LEVO750T2 PO (14:23)
[2017-06-11] MEDS ORDERED: OMEP20TC10 PO (14:26)
[2017-06-11] MEDS ORDERED: SIME80CT70 PO (14:27)
[2017-06-11] MEDS ORDERED: ONDA4ODT1 PO (14:27)
--- NOTE | 2017-06-11 15:00 | NUR ---
DISCHARGE ORDERS ARE IN PLACE. EXPLAINED TO PATIENT HER FOLLOW UP INSTRUCTIONS. INFORMED HER THAT SHE HAS A PRESCRIPTION. LET HER KNOW OF SIGNS AND SYMPTOMS TO WATCH OUT FOR, AND TO SEEK EMERGENCY MEDICAL ATTENTION IF SHE HAS ANY. SHE VERBALIZED UNDERSTANDING. REMOVED NEEDLE FROM MEDIPORT AND STOPPED IV INFUSION. SITE IS CLEAN AND DRY. PATIENT HAS NO SIGNS AND SYMPTOMS OF DISTRESS NOTED AT THIS TIME. ALL BELONGINGS ARE WITH PATIENT, IS HERE AT THE BEDSIDE. WILL WALK OUT WITH PATIENT.
== END 2017-06-11 15:00 | disposition home or self-care (01) | DRG 720 ==
LOC: MED 07:00 → MIC 10:13 → MTU 06-07 07:00
PROVIDERS: ADMIT Internal Medicine Pulmonary Disease; ATTEND Internal Medicine Pulmonary Disease
PROC: 30233N1 Transfusion of Nonautologous Red Blood Cells into Peripheral Vein, Percutaneous Approach (ICD-10-PCS; principal; 2017-06-05)
PROC: 0D9670Z Drainage of Stomach with Drainage Device, Via Natural or Artificial Opening (ICD-10-PCS; 2017-06-05)
PROC: 0DJ08ZZ Inspection of Upper Intestinal Tract, Via Natural or Artificial Opening Endoscopic (ICD-10-PCS; 2017-06-08)
DX: A41.9 Sepsis, unspecified organism (principal); K65.1 Peritoneal abscess; E43 Unspecified severe protein-calorie malnutrition; C78.7 Secondary malignant neoplasm of liver and intrahepatic bile duct; C23 Malignant neoplasm of gallbladder; K26.9 Duodenal ulcer, unspecified as acute or chronic, without hemorrhage or perforation; K56.7 Ileus, unspecified; E86.9 Volume depletion, unspecified; E87.6 Hypokalemia; D64.9 Anemia, unspecified; Z90.49 Acquired absence of other specified parts of digestive tract; K29.70 Gastritis, unspecified, without bleeding; K29.80 Duodenitis without bleeding; Z92.21 Personal history of antineoplastic chemotherapy; Z92.3 Personal history of irradiation; Z85.09 Personal history of malignant neoplasm of other digestive organs; K21.0 Gastro-esophageal reflux disease with esophagitis; Z90.2 Acquired absence of lung [part of]; Z68.27 Body mass index [BMI] 27.0-27.9, adult
CPT/HCPCS: 36415; 71045; 74018; 76705; 80053; 80202; 82140; 82272; 82948; 83605; 83735; 84100; 84484; 85025; 85384; 85610; 85730; 86886; 86900; 86901; 86920; 87040; 87081; 87804; 93005; 96361; 96365; 96367; 96375; 99291; C9113; J2250; J2405; J2543; J3010; J3370; J3490; J7030; J7060; P9016; Q0092

== ENCOUNTER 2017-06-18 18:41 | Emergency (ER) | payer OTHER ==
[~2017-06-18] VITALS: Ht 12.7 cm; Wt 2.7 kg
[~2017-06-18 18:41] MED LIST: FERR-252 PO; LEVO750T2 PO; METR250T2 PO; OMEP20TC10 PO; ONDA4ODT1 PO; SIME80CT70 PO
[2017-06-18 19:17] VITALS: BP 147/94
--- NOTE | 2017-06-18 19:40 | NUR ---
Justyn to chair Chavez
--- NOTE | 2017-06-18 20:25 | NUR ---
Patient transferred to bed 3 for further care. RN evaluating patient at bedside.
[2017-06-18] MEDS ORDERED: MORPHINE SULFATE 2 MG/ML SYR IVP ONE (20:45)
[2017-06-18] MEDS ORDERED: ONDANSETRON 4 MG/2 ML VIAL IVP ONE (20:45)
[2017-06-18] MEDS ORDERED: MORPHINE SULFATE 4 MG/ML SYR ONE (20:59)
--- NOTE | 2017-06-18 20:59 | NUR ---
radiologic technician at bedside.
[2017-06-18 21:29] LABS: BASOPHILS % (AUTO) 0.3 % (0.0-2.0); EOSINOPHILS # (AUTO) 0.1 K/uL (0-0.4); EOSINOPHILS % (AUTO) 0.7 % (0.0-4.0); HEMATOCRIT 32.4 % (36-48); HEMOGLOBIN 10.4 g/dL (12.0-16.0); LYMPHOCYTES # (AUTO) 1.3 K/uL (2.5-16.5); MEAN CORPUSCULAR HEMOGLOBIN 29 pg (27-31); MEAN CORPUSCULAR HGB CONC 32 g/dL (33-37); MEAN CORPUSCULAR VOLUME 90.2 fL (80-94); MONOCYTES # (AUTO) 1.3 K/uL (0.8-1.0); MONOCYTES % (AUTO) 14.3 % (1.7-9.3); NEUTROPHILS # (AUTO) 6.6 K/uL (1.8-7.7); NEUTROPHILS % (AUTO) 70.7 % (42.2-75.2); PLATELET COUNT (AUTO) 214 K/uL (140-450); PROTHROMBIN TIME 11.6 secs (10.8-13.4); WHITE BLOOD COUNT (AUTO) 9.3 K/uL (4.8-10.8)
[2017-06-18 21:29] LABS: APPEARANCE,URINE CLEAR (CLEAR); BILIRUBIN,URINE NEGATIVE (NEGATIVE); BLOOD, URINE NEGATIVE (NEGATIVE); COLOR,URINE YELLOW (YELLOW); LEUKOCYTE ESTERASE ,URINE NEGATIVE (NEGATIVE); NITRITE, URINE NEGATIVE (NEGATIVE); PH,URINE 7.5 (5.0-9.0); UGLUCOSE NEGATIVE (NEGATIVE)
[2017-06-18 21:30] LABS: ANION GAP 8.5 (8-16); CARBON DIOXIDE 32.6 mmol/L (21-32); CREATININE 0.7 mg/dL (0.6-1.3); POTASSIUM 3.1 mmol/L (3.5-5.1)
[2017-06-18 21:35] LABS: ALBUMIN 2.3 g/dL (3.4-5.0); TOTAL BILIRUBIN 0.3 mg/dL (0.0-1.0)
--- NOTE | 2017-06-18 22:18 | NUR ---
Dr. Foy evaluating patient at bedside.
[2017-06-18] MEDS ORDERED: SPIRONOLACTONE 50 MG TAB PO ONE (22:30)
[2017-06-18] MEDS ORDERED: FUROSEMIDE 40 MG/4 ML VIAL IVP SCH (22:30)
[2017-06-18] MEDS ORDERED: ONDANSETRON 4 MG ODT PO ONE (22:50)
--- NOTE | 2017-06-18 23:45 | NUR ---
D/Cd Stubbs mediport access after loading with Heparin 100 units/ml flush. Rere well. Dry drng applied to site.
[2017-06-18 23:50] VITALS: BP 130/99
--- NOTE | 2017-06-18 23:50 | NUR ---
Patient discharged with v/s stable. Written and verbal after care instructions given and explained. Patient alert, oriented and verbalized understanding of instructions. Ambulatory with steady gait. All questions addressed prior to discharge. ID band removed. Patient advised to follow up with PMD. Rx of Zofran, Lasix, and Aldactone given. Patient educated on indication of medication including possible reaction and side effects. Opportunity to ask questions provided and answered.
== END 2017-06-18 23:50 | disposition home or self-care (01) ==
LOC: MED 18:41
DX: E88.09 Other disorders of plasma-protein metabolism, not elsewhere classified (principal); R60.0 Localized edema; Z85.05 Personal history of malignant neoplasm of liver; Z79.899 Other long term (current) drug therapy
CPT/HCPCS: 36415; 71045; 80053; 81003; 81025; 83690; 84703; 85025; 85610; 86886; 86900; 86901; 96374; 96375; 99285; J1644; J1940; J2270; J2405; S0119

== ENCOUNTER 2017-06-29 16:38 | Emergency (ER) | payer OTHER ==
[~2017-06-29] VITALS: Ht 157.5 cm; Wt 62.6 kg
[2017-06-29 16:48] VITALS: BP 138/94
--- NOTE | 2017-06-29 16:54 | NUR ---
PATIENT AMBULATED TO [facility]
--- NOTE | 2017-06-29 17:00 | NUR ---
EPIGASTRIC PAIN, N/V AND DIZZINESS X2 WEEKS; WAS DISCHARGED FROM HERE 06/11/17 . DENIES N/V/D; SKIN IS PINK/WARM/DRY; AAOX4 WITH EVEN AND STEADY GAIT; LUNGS CLEAR BL; HR EVEN AND REGULAR; PT DENIES ANY FEVER, CP, SOB, OR COUGH AT THIS TIME; PATIENT STATES PAIN OF 9/10 AT THIS TIME; PATIENT SITTING IN CHAIR E. FAMILY WITH PT. ER MD MADE AWARE OF PT STATUS.
[2017-06-29] MEDS ORDERED: ALUMINUM HYD/MAG/SIMETHICONE 30 ML UDC PO ONE (17:10)
[2017-06-29] MEDS ORDERED: LIDOCAINE VISCOUS 2% 20 ML UDC PO ONE (17:10)
--- NOTE | 2017-06-29 17:40 | NUR ---
PT STATED PAIN RELIVED.
[2017-06-29 18:20] VITALS: BP 138/94
== END 2017-06-29 18:20 | disposition home or self-care (01) ==
LOC: MED 16:38
DX: K21.9 Gastro-esophageal reflux disease without esophagitis (principal); Z85.05 Personal history of malignant neoplasm of liver
CPT/HCPCS: 93005; 99283